=== PATIENT | male | born 1960 | race Caucasian/White ===

== ENCOUNTER 2018-12-07 21:20 | Emergency (ER) | payer OTHER ==
--- NOTE | 2018-12-07 22:54 | RADIOLOGY REPORT (SQ) ---
EXAM DESCRIPTION: XR FOOT 1-2 VIEWS COMPLETED DATE/TME: 12/07/2018 00:00 CLINICAL HISTORY: 58 years, Male, bone pain COMPARISON: None. NUMBER OF VIEWS: 2 TECHNIQUE: 2 view right foot LIMITATIONS: None. FINDINGS: Lucency associated with the base of the fourth metatarsals suspicious for nondisplaced fracture. Correlate with site of pain. No significant soft tissue swelling. No other evidence for fracture or dislocation IMPRESSION: Findings suspicious for nondisplaced fracture of the base of the fourth metatarsal copyright 2010 [employer]- All Rights Reserved
--- NOTE | 2018-12-07 22:55 | RADIOLOGY REPORT (SQ) ---
EXAM DESCRIPTION: XR ANKLE 2 VIEWS COMPLETED DATE/TME: 12/07/2018 00:00 CLINICAL HISTORY: 58 years, Male, bone pain COMPARISON: None. NUMBER OF VIEWS: 2 TECHNIQUE: 2 view right ankle LIMITATIONS: None. FINDINGS: Negative for fracture or dislocation. Soft tissues are unremarkable IMPRESSION: Negative exam copyright 2010 [employer]- All Rights Reserved
[2018-12-08] MEDS ORDERED: ACETAMINOPHEN 325 MG TABLET PO ONE (00:41)
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
[2018-12-08 01:14] VITALS: BP 148/82
== END 2018-12-08 01:14 | disposition left against medical advice (07) ==
LOC: ER 21:20
DX: S92.344A Nondisplaced fracture of fourth metatarsal bone, right foot, initial encounter for closed fracture (principal); S09.90XA Unspecified injury of head, initial encounter; W20.8XXA Other cause of strike by thrown, projected or falling object, initial encounter; F17.210 Nicotine dependence, cigarettes, uncomplicated
CPT/HCPCS: 99283

== ENCOUNTER 2019-11-18 15:12 | Emergency (ER) | payer SELFPAY ==
[2019-11-18 15:16] VITALS: BP 126/77
[2019-11-18] MEDS ORDERED: IBUPROFEN 800 MG TABLET PO ONE (17:19)
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
--- NOTE | 2019-11-18 18:21 | RADIOLOGY REPORT (SQ) ---
EXAM DESCRIPTION: SHOULDER LEFT 2 OR MORE VIEWS IMAGES COMPLETED DATE/TIME: 11/18/2019 4:43 pm REASON FOR STUDY: Pain injury COMPARISON: None. NUMBER OF VIEWS: Three views. TECHNIQUE: Internal rotation, external rotation, and Y view images acquired of the left shoulder. LIMITATIONS: None. FINDINGS: MINERALIZATION: Normal. BONES: No acute fracture. No worrisome bone lesions. JOINTS: Mild osteoarthritis of the glenohumeral and acromioclavicular joints. VISUALIZED LUNGS AND RIBS: No pneumothorax. No rib fracture. SOFT TISSUES: No radiopaque foreign body. OTHER: No other significant finding. IMPRESSION: Mild osteoarthritis. No acute fracture or dislocation. TECHNICAL DOCUMENTATION: JOB ID: [id number] 2010 [employer]- All Rights Reserved Reading location - IP/workstation name: [email or web address]
== END 2019-11-18 18:38 | disposition home or self-care (01) ==
LOC: ER 15:12
DX: Z04.3 Encounter for examination and observation following other accident (principal); M19.012 Primary osteoarthritis, left shoulder; M25.512 Pain in left shoulder; G89.29 Other chronic pain; F17.200 Nicotine dependence, unspecified, uncomplicated; Z79.899 Other long term (current) drug therapy
CPT/HCPCS: 99283